=== PATIENT | male | born 1945 ===

== ENCOUNTER 2021-04-24 18:42 | Emergency (ER) | payer OTHER ==
[~2021-04-24] VITALS: Ht 180.3 cm; Wt 83.9 kg
[~2021-04-24 18:42] MED LIST: CITALOPRAM10 MG/5 ML; HUMALOG100 U/ML; HYZAAR 100-121 UDTAB; LANTUS100 U/ML; LIPITOR20 MG; NAMENDA5 MG; PLAVIX75 MG; RAZADYNE4 MG; [UNRECOGNIZED DRUG - OTHER]
== END 2021-04-24 22:15 | disposition home or self-care (01) ==
LOC: ER 18:42
DX: S42.251A Displaced fracture of greater tuberosity of right humerus, initial encounter for closed fracture (principal); W18.39XA Other fall on same level, initial encounter; Y93.89 Activity, other specified; Y92.098 Other place in other non-institutional residence as the place of occurrence of the external cause; Y99.8 Other external cause status

== ENCOUNTER 2021-04-29 11:04 | Outpatient (CLI) | payer OTHER | END 2021-04-29 11:14 | disposition home or self-care (01) | LOC: RAD 11:04 | PROVIDERS: ATTEND Orthopaedic Surgery | DX: S42.224A 2-part nondisplaced fracture of surgical neck of right humerus, initial encounter for closed fracture (principal) ==

== ENCOUNTER 2021-05-19 11:52 | Outpatient (CLI) | payer OTHER | END 2021-05-19 12:04 | disposition home or self-care (01) | LOC: RAD 11:52 | PROVIDERS: ATTEND Orthopaedic Surgery | DX: S42.224A 2-part nondisplaced fracture of surgical neck of right humerus, initial encounter for closed fracture (principal) ==

== ENCOUNTER 2021-07-03 14:21 | Outpatient (CLI) | payer OTHER | END 2021-07-03 14:22 | disposition home or self-care (01) | LOC: NUCLEAR 14:21 | PROVIDERS: ATTEND Orthopaedic Surgery | DX: M81.0 Age-related osteoporosis without current pathological fracture (principal) ==

== ENCOUNTER → 2021-08-03 | Outpatient (CLI) | payer OTHER | END | disposition home or self-care (01) | LOC: LAB 09:38 | PROVIDERS: ATTEND Orthopaedic Surgery | DX: E88.89 Other specified metabolic disorders (principal); E55.9 Vitamin D deficiency, unspecified; M85.88 Other specified disorders of bone density and structure, other site; E21.2 Other hyperparathyroidism; M81.8 Other osteoporosis without current pathological fracture; E56.1 Deficiency of vitamin K ==